=== PATIENT | male | born 1975 | race Hispanic/Latino ===

== ENCOUNTER 2021-07-06 13:25 | Inpatient (IN) | payer OTHER ==
[~2021-07-06] VITALS: Ht 162.6 cm; Wt 123.5 kg
[~2021-07-06 13:25] MED LIST: OMEP40CA21 PO; VITA1CAP17 PO; [UNRECOGNIZED DRUG - CODE] PO
[2021-07-06 14:04] LABS: BASOPHILS % (AUTO) 0.5 % (0.0-5.0); EOSINOPHILS % (AUTO) 0.7 % (0.0-8.0); MEAN CORPUSCULAR HEMOGLOBIN 20.7 pg (27.0-33.0); MEAN CORPUSCULAR VOLUME 82.6 fL (79-99); MONOCYTES % (AUTO) 10.6 % (3.0-13.0); NEUTROPHILS % (AUTO) 78.2 % (40.0-77.0); NUCLEATED RED BLOOD CELLS 2.3 % (0.0-0.19); PLATELET COUNT (AUTO) 367 K/uL (130-400); RED BLOOD CELL COUNT(AUTO) 2.42 MIL/uL (4.50-6.20); RED CELL DISTRIBUTION WIDTH 18.6 % (11.0-15.5); WHITE BLOOD COUNT (AUTO) 9.4 K/uL (4.8-10.8)
[2021-07-06 14:08] LABS: CREATININE 0.8 mg/dL (0.5-1.5); POTASSIUM 4.2 mmol/L (3.5-5.1)
[2021-07-06 14:11] LABS: INR 1.13 (0.85-1.15); PROTHROMBIN TIME 12.2 SEC (9.6-11.6)
[2021-07-06 14:13] LABS: PARTIAL THROMBOPLASTIN TIME 24.2 SEC (26.3-35.5)
[2021-07-06 14:20] LABS: ALBUMIN 3.2 g/dL (3.5-5.0); BILIRUBIN,TOTAL 0.2 mg/dL (0.2-1.0); TOTAL PROTEIN, SERUM 6.6 g/dL (6.0-8.3)
[2021-07-06] MEDS ORDERED: PANTOPRAZOLE 40 MG/VIAL IVP SCH (15:00)
[2021-07-06] MEDS ORDERED: HYDRALAZINE 20MG/ML VIAL IV PRN (16:30)
[2021-07-06] MEDS ORDERED: OCTREOTIDE ACETATE 1,250 MCG in 0.9% NACL 250ML 250 ML IV SCH (16:30)
[2021-07-06] MEDS ORDERED: DiphenhydrAMINE HCL 50 MG/ML VIAL IV PRN (16:30)
[2021-07-06] MEDS ORDERED: ONDANSETRON 4MG INJ IV PRN (16:30)
[2021-07-06] MEDS ORDERED: ACETAMINOPHEN 325 MG TAB PO PRN ×2 (16:30)
[2021-07-06] MEDS: LACTATED RINGERS 1000ML 1,000 ML IV SCH (17:27)
[2021-07-06] MEDS: PANTOPRAZOLE 40MG INJ 80 MG in 0.9%NACL 100ML 100 ML IV SCH (17:56)
[2021-07-06 19:48] LABS: HEMATOCRIT 22.9 % (42-54)
[2021-07-06 20:20] VITALS: BP 124/69
[2021-07-06] MEDS ORDERED: LACTULOSE 20 GM/30 ML UDCUP PR SCH (21:00)
[2021-07-06] MEDS ORDERED: MAGNESIUM CITRATE 296 ML SOLUTION PO SCH (21:00)
[2021-07-06] MEDS ORDERED: PEG 3350/NA SULF,BICARB,CL/KCL 4000 ML SOLN PO SCH (21:00)
[2021-07-06] MEDS: HYDROCORTISONE 25 MG SUPPOSITORY PR SCH (21:00)
[2021-07-06] MEDS ORDERED: FAMOTIDINE 20MG VIAL IV SCH (21:00)
[2021-07-06 21:02] LABS: HEMOGLOBIN A1C < 3.6 % (4.0-6.0)
[2021-07-06] MEDS ORDERED: MAGNESIUM CITRATE 296 ML SOLUTION ONE (21:07)
[2021-07-06] MEDS ORDERED: LACTULOSE 20 GM/30 ML UDCUP ONE (21:07)
[2021-07-06] MEDS ORDERED: PEG 3350/NA SULF,BICARB,CL/KCL 4000 ML SOLN ONE (21:10)
[2021-07-06 22:55] VITALS: BP 120/69
[2021-07-07] VITALS (20 sets, daily range): BP systolic 106–131; BP diastolic 55–93
[2021-07-07] MEDS: LACTATED RINGERS 1000ML 1,000 ML IV SCH ×2 (02:30→11:41)
[2021-07-07 05:32] LABS: HEMATOCRIT 25.6 % (42-54)
[2021-07-07 07:09] LABS: HEMATOCRIT 24.2 % (42-54)
[2021-07-07 07:53] LABS: CREATININE 1.1 mg/dL (0.5-1.5); POTASSIUM 4.2 mmol/L (3.5-5.1)
[2021-07-07] MEDS: PANTOPRAZOLE 40MG INJ 80 MG in 0.9%NACL 100ML 100 ML IV SCH (08:54)
[2021-07-07] MEDS: HYDROCORTISONE 25 MG SUPPOSITORY PR SCH ×2 (08:54→19:33)
[2021-07-07] MEDS ORDERED: FERS325 PO (12:01)
[2021-07-07] MEDS ORDERED: LEVO112C4 PO (12:01)
[2021-07-07] MEDS ORDERED: LOSA50TA64 PO (12:01)
[2021-07-07] MEDS ORDERED: METO-409 PO (12:01)
[2021-07-07] MEDS ORDERED: ASPI-1012 PO (12:15)
[2021-07-07] MEDS ORDERED: VIT1TABL66 PO (12:15)
[2021-07-07] MEDS ORDERED: CETI10TA57 PO (12:15)
[2021-07-07] MEDS ORDERED: ATOR10 PO (12:15)
[2021-07-07] MEDS ORDERED: METF-444 PO (12:15)
[2021-07-07 12:25] LABS: HEMATOCRIT 25.7 % (42-54)
[2021-07-07] MEDS ORDERED: PROPOFOL 10 MG/ML 20ML VIAL IV ONE (12:49)
[2021-07-07] MEDS ORDERED: MIDAZOLAM HCL 1 MG/ML 2ML VIAL ONE (12:49)
[2021-07-07] MEDS ORDERED: PHENYLEPHRINE HCL 10 MG/ML 1ML VIAL IV ONE (12:51)
[2021-07-07] MEDS ORDERED: PHARMACY COMMUNICATION MISC SCH (14:30)
[2021-07-07] MEDS ORDERED: CHLORDIAZEPOXIDE HCL 25 MG CAP PO PRN ×2 (15:00)
[2021-07-07] MEDS ORDERED: PHARMACY COMMUNICATION MISC PRN (15:00)
[2021-07-07] MEDS ORDERED: LORAZEPAM 2 MG/ML 1 ML VIAL IVP PRN ×2 (15:00)
[2021-07-07] MEDS ORDERED: ONDANSETRON 4MG INJ IV PRN (15:00)
[2021-07-07] MEDS ORDERED: ACETAMINOPHEN 500 MG TABLET PO PRN (15:00)
[2021-07-07 15:05] LABS: MAGNESIUM 2.2 mg/dL (1.80-2.40); PHOSPHORUS 4.6 mg/dL (2.5-4.9)
[2021-07-07 16:39] LABS: HEMATOCRIT 25.4 % (42-54)
[2021-07-07] MEDS: THIAMINE HCL 100 MG, FOLIC ACID 1 MG, M.V.I. IV [ADULT] 10 ML in 0.9%NACL 1000ML 1,000 ML IV SCH (16:57)
[2021-07-08 04:01] VITALS: BP 125/66
[2021-07-08 07:20] LABS: BASOPHILS % (AUTO) 0.6 % (0.0-5.0); EOSINOPHILS % (AUTO) 2.3 % (0.0-8.0); LYMPHOCYTES % (AUTO) 13.3 % (21.0-51.0); MEAN CORPUSCULAR HEMOGLOBIN 23.3 pg (27.0-33.0); MEAN CORPUSCULAR HGB CONC 27.3 g/dL (32.0-36.0); MEAN CORPUSCULAR VOLUME 85.2 fL (79-99); MONOCYTES % (AUTO) 10.6 % (3.0-13.0); NEUTROPHILS % (AUTO) 72.7 % (40.0-77.0); NUCLEATED RED BLOOD CELLS 0.9 % (0.0-0.19); PLATELET COUNT (AUTO) 321 K/uL (130-400); RED BLOOD CELL COUNT(AUTO) 3.05 MIL/uL (4.50-6.20); RED CELL DISTRIBUTION WIDTH 17.2 % (11.0-15.5); WHITE BLOOD COUNT (AUTO) 7.8 K/uL (4.8-10.8)
[2021-07-08 07:27] LABS: CREATININE 0.9 mg/dL (0.5-1.5); POTASSIUM 3.6 mmol/L (3.5-5.1)
[2021-07-08 07:30] VITALS: BP 127/83
[2021-07-08] MEDS: HYDROCORTISONE 25 MG SUPPOSITORY PR SCH (08:42)
[2021-07-08] MEDS ORDERED: PANTOPRAZOLE 40 MG TAB DR PO SCH (09:00)
[2021-07-08 11:00] VITALS: BP 137/78
[2021-07-08 15:26] LABS: HEMATOCRIT 27.7 % (42-54)
[2021-07-08] MEDS: THIAMINE HCL 100 MG, FOLIC ACID 1 MG, M.V.I. IV [ADULT] 10 ML in 0.9%NACL 1000ML 1,000 ML IV SCH (15:31)
[2021-07-08 15:55] VITALS: BP 135/80
[2021-07-08] MEDS ORDERED: OMEP20TA2 PO (17:27)
[2021-07-08] MEDS ORDERED: HYDR25SU38 RC (17:27)
[2021-07-08] MEDS ORDERED: FERS325 PO (17:27)
[2021-07-08] MEDS ORDERED: FOLI0.4T6 PO (17:38)
[2021-07-08] MEDS ORDERED: THIA100T91 PO (17:38)
[2021-07-09] MEDS ORDERED: LEVOTHYROXINE 112 MCG TABLET PO SCH (07:30)
[2021-07-09] MEDS ORDERED: THIAMINE HCL 100 MG TABLET PO SCH (09:00)
[2021-07-09] MEDS ORDERED: FERROUS SULFATE 325 MG TABLET.DR PO SCH (09:00)
[2021-07-09] MEDS ORDERED: FOLIC ACID 1 MG TABLET PO SCH (09:00)
== END 2021-07-08 20:10 | disposition home or self-care (01) | DRG 244 ==
LOC: EDH 13:25 → EDHIP 13:26 → OBSVTOIN 13:26 → INTOOBSV 13:26 → EDHIP 13:27 → 4BH 20:09
PROVIDERS: ADMIT Internal Medicine; ATTEND Internal Medicine
PROC: 30233N1 Transfusion of Nonautologous Red Blood Cells into Peripheral Vein, Percutaneous Approach (ICD-10-PCS; 2021-07-06)
PROC: 0DB98ZX Excision of Duodenum, Via Natural or Artificial Opening Endoscopic, Diagnostic (ICD-10-PCS; principal; 2021-07-07)
PROC: 0DB68ZX Excision of Stomach, Via Natural or Artificial Opening Endoscopic, Diagnostic (ICD-10-PCS; 2021-07-07)
PROC: 0DJD8ZZ Inspection of Lower Intestinal Tract, Via Natural or Artificial Opening Endoscopic (ICD-10-PCS; 2021-07-07)
DX: K57.31 Diverticulosis of large intestine without perforation or abscess with bleeding (principal); E66.01 Morbid (severe) obesity due to excess calories; D62 Acute posthemorrhagic anemia; I48.0 Paroxysmal atrial fibrillation; Z68.42 Body mass index [BMI] 45.0-49.9, adult; E11.9 Type 2 diabetes mellitus without complications; E03.9 Hypothyroidism, unspecified; E78.5 Hyperlipidemia, unspecified; G47.33 Obstructive sleep apnea (adult) (pediatric); I25.10 Atherosclerotic heart disease of native coronary artery without angina pectoris; K52.9 Noninfective gastroenteritis and colitis, unspecified; Z20.822 Contact with and (suspected) exposure to COVID-19; I10 Essential (primary) hypertension; F10.10 Alcohol abuse, uncomplicated; K29.00 Acute gastritis without bleeding; K57.30 Diverticulosis of large intestine without perforation or abscess without bleeding; E78.00 Pure hypercholesterolemia, unspecified; K21.00 Gastro-esophageal reflux disease with esophagitis, without bleeding; K29.80 Duodenitis without bleeding; K64.1 Second degree hemorrhoids; Z79.82 Long term (current) use of aspirin; I25.2 Old myocardial infarction; Z88.8 Allergy status to other drugs, medicaments and biological substances; Z87.891 Personal history of nicotine dependence; Z86.73 Personal history of transient ischemic attack (TIA), and cerebral infarction without residual deficits; Z80.8 Family history of malignant neoplasm of other organs or systems; Z83.3 Family history of diabetes mellitus; Z80.0 Family history of malignant neoplasm of digestive organs; Z82.49 Family history of ischemic heart disease and other diseases of the circulatory system
CPT/HCPCS: 36415; 36430; 43239; 45378; 71045; 74176; 80048; 80053; 82270; 82550; 82948; 83036; 83735; 83874; 84100; 84484; 85014; 85018; 85025; 85610; 85730; 86850; 86900; 86901; 86922; 86923; 87635; 88305; 88342; 93005; A4606; C9113; G0378; J2250; J2354; J2370; J2704; J3411; J3490; J7030; J7050; J7120; P9016